=== PATIENT | male | born 1965 | race Caucasian/White ===

== ENCOUNTER 2020-07-18 08:14 | Outpatient (CLI) | payer OTHER ==
--- NOTE | 2020-07-18 13:56 | XRAY Report ---
PROCEDURE: Knee 4 View BILAT INDICATIONS: R KNEE PX TECHNIQUE: 4 views of the bilateral knee(s) were acquired. COMPARISON: None. FINDINGS: Bones: No fractures or dislocations. No suspicious bony lesions. These demonstrate mild bilateral medial and minimal patellofemoral compartment narrowing with the latter most notable on the left. The re are no erosions or periarticular osteophytes. Soft tissues: Mild bilateral effusions. No suspicious soft tissue calcifications. IMPRESSION: Bilateral arthritic change most notable in the medial compartment as above. Reviewed by: Karen Collins MD on 07/18/2020 1:55 PM PDT Approved by: Karen Collins MD on 07/18/2020 1:55 PM PDT Station ID: [id number]
== END 2020-07-18 23:59 | disposition home or self-care (01) ==
LOC: DI.N 08:14
PROVIDERS: ATTEND Orthopaedic Surgery
DX: M17.0 Bilateral primary osteoarthritis of knee (principal)

== ENCOUNTER 2023-03-21 10:20 | Day surgery (SDC) | payer OTHER ==
[~2023-03-21 10:20] MED LIST: PROPOFOL 500 MG/50 ML 0 MG/0 ML VIAL ONE
[2023-03-21] MEDS ORDERED: LACTATED RINGERS 1,000 ML IV ONE (10:30)
--- NOTE | 2023-03-21 11:43 | ANESTHESIA ---
Pre-Anesthesia VS, & Labs - Diagnosis screening - Procedure colonoscopy Vital Signs: Temp Pulse Resp BP Pulse Ox O2 Flow Rate 36.3 C L 98 18 130/74 97 03/21/23 10:35 03/21/23 10:35 03/21/23 10:35 03/21/23 10:35 03/21/23 10:35 Height: 5 ft 8 in Weight (kg): 110 kg Body Mass Index: 36.8 BMI Classification: Obese - NPO Other (prep as directed) Home Medications and Allergies Home Medications: Ambulatory Orders Dulaglutide [Trulicity] 1.5 mg SQ OAW 03/20/23 Empagliflozin [Jardiance] 25 mg PO DAILY 03/20/23 Metformin HCl 1,000 mg PO BID 03/20/23 Rosuvastatin Calcium 20 mg PO DAILY 03/20/23 Testosterone [Androgel] 1.25 gm TD DAILY 03/20/23 Dulaglutide [Trulicity] 1.5 mg SQ OAW 03/20/23 Empagliflozin [Jardiance] 25 mg PO DAILY 03/20/23 Metformin HCl 1,000 mg PO BID 03/20/23 Rosuvastatin Calcium 20 mg PO DAILY 03/20/23 Testosterone [Androgel] 1.25 gm TD DAILY 03/20/23 Allergies/Adverse Reactions: Allergies Allergy/AdvReac Type Severity Reaction Status Date / Time No Known Drug Allergies Allergy Verified 03/20/23 13:10 Anes History & Medical History - Anesthetic History Anesthesia Complications: reports: No previous complications - Medical History Cardiovascular: reports: Hypertension, High cholesterol Pulmonary: reports: Sleep apnea, CPAP use Gastrointestinal: reports: None Urinary: reports: None Musculoskeletal: reports: None Endocrine/Autoimmune: reports: Type 2 diabetes Smoking Status: Never smoker - Surgical History General: reports: Appendectomy, Colonoscopy Gynecologic: reports: Other Exam General: Alert, Oriented x3 Dental: WNL Mouth Opening: Greater than 4 Fingerbreadths Neck Mobility: Normal Mallampati classification: II Thyromental Distance: greater than 6 cm Respiratory: Lungs clear Cardiovascular: Regular rate Plan Anesthesia Type: Total IV Consent for Procedure(s) Verified and Reviewed: Yes Code Status: Attempt Resuscitation ASA classification: 3-Severe systemic disease Is this case an emergency?: No
[2023-03-21] MEDS ORDERED: PROPOFOL 200 MG/20 ML VIAL IVP ONE (12:02)
[2023-03-21] MEDS ORDERED: LACTATED RINGERS 700 ML IV ONE (12:31)
[2023-03-21 12:49] VITALS: O2SAT 97
[2023-03-21 12:58] VITALS: BP 122/59
--- NOTE | 2023-03-21 13:06 | ANESTHESIA POST OP EVALUATION ---
Anesthesia Post Eval - Post Anesthesia Eval Vitals: Last Vital Signs Temp 36.2 C L 03/21/23 12:54 Pulse 85 03/21/23 12:54 Resp 16 03/21/23 12:54 BP 122/59 L 03/21/23 12:54 Pulse Ox 97 03/21/23 12:54 O2 Flow Rate CV Function Including HR & BP: Stable Pain Control: Satisfactory Nausea & Vomiting: Negative Mental Status: Baseline Respiratory Status: Airway Patent Hydration Status: Satisfactory Anesthesia Complications: None
== END 2023-03-21 10:21 | disposition home or self-care (01) ==
LOC: SDS 10:20
PROVIDERS: ATTEND Surgery
DX: Z12.11 Encounter for screening for malignant neoplasm of colon (principal); K57.30 Diverticulosis of large intestine without perforation or abscess without bleeding; K64.2 Third degree hemorrhoids; E66.9 Obesity, unspecified; Z68.36 Body mass index [BMI] 36.0-36.9, adult; E11.9 Type 2 diabetes mellitus without complications; Z79.84 Long term (current) use of oral hypoglycemic drugs; G47.30 Sleep apnea, unspecified; I10 Essential (primary) hypertension
CPT/HCPCS: 45378; J7120

== ENCOUNTER 2023-10-23 06:48 | Day surgery (SDC) | payer OTHER ==
--- NOTE | 2023-10-23 06:19 | HISTORY & PHYSICAL EXAMINATION ---
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 Social & Family Hx - Social History Smoking Status: Never smoker Meds/Allgy - Home Medications Home Medications: Ambulatory Orders Medication Instructions Recorded Confirmed Dulaglutide [Trulicity] 1.5 mg SQ OAW 03/20/23 10/22/23 Empagliflozin [Jardiance] 25 mg PO DAILY 03/20/23 10/22/23 Metformin HCl 1,000 mg PO BID 03/20/23 10/22/23 Rosuvastatin Calcium 20 mg PO DAILY 03/20/23 10/22/23 Testosterone [Androgel] 1.25 gm TD DAILY 03/20/23 10/22/23 - Allergies Allergies/Adverse Reactions: Allergies Allergy/AdvReac Type Severity Reaction Status Date / Time No Known Drug Allergies Allergy Verified 10/22/23 12:47 Impression/Plan - Problem List Problem List: History of Present Illness: Yeison is a 58 year old male with chronic perianal discomfort due to Class 3 internal hemorrhoids. He has tried dietary changes to eliminate the fullness, discomfort, and intermittent rectal bleeding that occurs several times a week without resolution of the problem. He underwent colonoscopy earlier this year by me at which time the hemorrhoids were noted. No other colon abnormalities were present at the time of the endoscopic examination. He now returns for hemorrhoidal banding. Allergies: No Known Allergies Medications: See list PSH: Colonoscopy; Appendectomy PMH: HTN; Hyperlipidemia Allergies: None SH: Non-smoker; - ETOH ROS: Intermittent rectal bleeding; Minimal perianal pruritus Vital Signs: Patient Profile: 58 Years Old Male Height: 68 inches Weight: 230 pounds BMI: 35.10 Temp: 98.0 degrees F oral Pulse rate: 78 / minute Resp: 20 per minute BP sittin / 71 Vitals Entered By: Jeannette Braga RN (September 02, 2023 11:13 AM) Problems were reviewed with the patient during this visit. Medications were reviewed with the patient during this visit. Allergies were reviewed with the patient during this visit. No known allergies. Physical Exam GENERAL APPEARANCE: Normal development, normal body habitus, normal grooming PSYCHIATRIC: AAO; Comfortable and []calm demeanor EYES: Pupils equal, round and reactive to light, sclera anicteric, EARS, NOSE, MOUTH, THROAT: Normal hearing, Oral mucous membranes moist and without lesions; Teeth in good repair NECK: No crepitus, lymphadenopathy, or thyromegaly LUNGS: Clear to auscultation without wheezing; No use of accessory muscles to breathe CARDIOVASCULAR: Heart-NSR without murmurs; Palpable carotid arteries - no bruits; Peripheral edema absent ABD: Soft; distended; hernias; masses; tenderness; + BS LYMPHATIC: Neck, Axillae, Groin without palpable adenopathy EXTREMITIES: No clubbing, cyanosis, infections SKIN: Anicteric; No rashes, lesions, Ulcerations RECTAL (performed in the office) In the left lateral decubitus position, the anus is inspected. There are two small external skin tags at the anal verge. There is no evidence of perianal abscess or fistula. Inspection of the anal canal does not identify an anal fissure. Anal sphncter tone is normal. With valsalva, several large, inflamed internal hemorrhoid cushions prolapse into the anal canal. Anoscopy is performed and confirm 3 large cushions (LL, RA, RP) which arise proximal to the dentate line. The largest requires slight manual pressure for reduction. Digital rectal examination is otherwise normal. Assessment: Class 3 internal hemorrhoids unresponsive to medical therapy Recommendation: 1) Hemorrhoidal banding. the patient understands that we will ligate 2-3 hemorrhoid cushions today but that the number depends upon how the first few banded hemorrhoids obstruct visualization. Multiple sessions may be required but the additional sessions would likely be performed in the office once the larger cushions have resolved. Consent: Yeison has been counseled for the procedure, it's indications, risks, benefits and expected outcome as well as alternative therapies. We specifically discussed risks associated with anesthesia, bleeding, and infec tion, which may require additional surgery. Yeison understands, agrees, and consents to the proposed operative strategy and requests that we proceed with the procedure as outlined in our discussion. Colby Fernandez MD, [facility] General Surgery Service
[2023-10-23] MEDS ORDERED: PROPOFOL 500 MG/50 ML 0 MG/0 ML VIAL ONE (07:02)
[2023-10-23] MEDS ORDERED: LIDOCAINE-MPF 2% 5 ML VIAL ONE (07:07)
[2023-10-23] MEDS ORDERED: LIDOCAINE-PF 2% 10 ML AMP SUBQ ONE (07:07)
[2023-10-23] MEDS: LACTATED RINGERS 1,000 ML IV ONE (07:10)
--- NOTE | 2023-10-23 07:43 | ANESTHESIA ---
Pre-Anesthesia VS, & Labs - Diagnosis rectal bleeding - Procedure hemorrhoid banding Vital Signs: Temp Pulse Resp BP Pulse Ox O2 Flow Rate 36.3 C L 79 14 143/84 H 96 10/23/23 07:10 10/23/23 07:10 10/23/23 07:10 10/23/23 07:10 10/23/23 07:10 Height: 5 ft 8 in Weight (kg): 108.3 kg Body Mass Index: 36.3 BMI Classification: Obese - NPO >8 hours - Lab Results Current Lab Results: Laboratory Tests 10/23/23 07:28: POC Whole Bld Glucose 111 H Home Medications and Allergies Dulaglutide [Trulicity] 1.5 mg SQ OAW 03/20/23 Empagliflozin [Jardiance] 25 mg PO DAILY 03/20/23 Metformin HCl 1,000 mg PO BID 03/20/23 Rosuvastatin Calcium 20 mg PO DAILY 03/20/23 Testosterone [Androgel] 1.25 gm TD DAILY 03/20/23 Allergies/Adverse Reactions: Allergies Allergy/AdvReac Type Severity Reaction Status Date / Time No Known Drug Allergies Allergy Verified 10/22/23 12:47 Anes History & Medical History - Anesthetic History Anesthesia Complications: reports: No previous complications - Medical History Cardiovascular: reports: Hypertension, High cholesterol Pulmonary: reports: Sleep apnea, CPAP use Gastrointestinal: reports: None Urinary: reports: None Musculoskeletal: reports: None Endocrine/Autoimmune: reports: Type 2 diabetes Smoking Status: Never smoker - Surgical History General: reports: Appendectomy, Colonoscopy Gynecologic: reports: Other Exam General: Alert, Oriented x3 Dental: WNL Mouth Opening: Greater than 4 Fingerbreadths Neck Mobility: Normal Mallampati classification: III Thyromental Distance: greater than 6 cm Respiratory: Lungs clear Cardiovascular: Regular rate, Normal S1, Normal S2 Plan Anesthesia Type: Total IV Consent for Procedure(s) Verified and Reviewed: Yes Code Status: Attempt Resuscitation ASA classification: 2-Mild systemic disease Is this case an emergency?: No
[2023-10-23] MEDS ORDERED: MIDAZOLAM 2 MG/2 ML VIAL ONE (07:56)
[2023-10-23] MEDS ORDERED: PROPOFOL 200 MG/20 ML VIAL IVP ONE (08:09)
[2023-10-23] MEDS: LACTATED RINGERS 800 ML IV ONE ×2 (08:31→09:02)
--- NOTE | 2023-10-23 08:35 | OPERATIVE REPORT ---
Operative Report - General Procedure Date: 10/23/23 Planned Procedure: Hemorrhoid banding Pre-Op Diagnosis: Class 2-3 hemorrhoids Procedure Performed: Hemorrhoid banding (3 cushion) Post Op Diagnosis: Class 2-3 hemorhoids - Procedure Note Primary Surgeon: Rebecca Anesthesia Technique: Moderate sedation Pathology: None Estimated Blood Loss (mL): 2 Indications: Hemorrhoid bleeding/pruritus unresponsive to medical management Findings: Prolapsing internal hemorrhoid cushions at left lateral, right anterior, and right posterior positions Complications: None - Other Other Information/Narrative: In the left lateral decubitus procedure, the anal verge was examined and found to be normal. The patient was placed in slight [place] position to decrease hemorrhoid engorgement. The areas to be banded were tested with a grasping forceps before placement of the bands. The left lateral cushion was the largest and banded above the dentate line with 2 bands using a suction ba nding device. The right anterior and posterior cushions were somewhat smaller and similarly banded with a single band each well above the dentate line. The patient tolerated the procedure without difficulty
[2023-10-23 08:43] VITALS: O2SAT 97
[2023-10-23] MEDS ORDERED: oxyCODONE 5 MG TABLET ONE (08:47)
[2023-10-23] MEDS: oxyCODONE 5 MG TABLET PO PRN (08:49)
[2023-10-23 08:54] VITALS: BP 140/85
--- NOTE | 2023-10-23 08:54 | ANESTHESIA POST OP EVALUATION ---
Anesthesia Post Eval - Post Anesthesia Eval Vitals: Last Vital Signs Temp 36.4 C L 10/23/23 08:45 Pulse 81 10/23/23 08:45 Resp 14 10/23/23 08:45 BP 140/85 H 10/23/23 08:45 Pulse Ox 97 10/23/23 08:45 O2 Flow Rate CV Function Including HR & BP: Stable Pain Control: Satisfactory Nausea & Vomiting: Negative Mental Status: Baseline Respiratory Status: Airway Patent Hydration Status: Satisfactory Anesthesia Complications: None
[2023-10-23] MEDS ORDERED: oxyCODONE 5 MG TABLET PO PRN (10:36)
[2023-10-23] MEDS ORDERED: metFORMIN 500 MG TABLET PO SCH (17:00)
[2023-10-23] MEDS ORDERED: ATORVASTATIN 40 MG TABLET PO SCH (21:00)
[2023-10-24] MEDS ORDERED: ANDROGEL TOP SCH (09:00)
[2023-10-24] MEDS ORDERED: [UNRECOGNIZED DRUG - OTHER] SUBQ SCH (09:00)
[2023-10-24] MEDS ORDERED: JARDIANCE 25 MG PO SCH (09:00)
== END 2023-10-23 06:49 | disposition home or self-care (01) ==
LOC: SDS 06:48
PROVIDERS: ATTEND Surgery
DX: K64.2 Third degree hemorrhoids (principal); E11.9 Type 2 diabetes mellitus without complications; G47.30 Sleep apnea, unspecified; Z79.85 Long-term (current) use of injectable non-insulin antidiabetic drugs; Z79.84 Long term (current) use of oral hypoglycemic drugs; L29.0 Pruritus ani; E66.9 Obesity, unspecified; Z68.36 Body mass index [BMI] 36.0-36.9, adult
CPT/HCPCS: 46221; A9270; J7120